=== PATIENT | male | born 1950 | race Caucasian/White ===

== ENCOUNTER 2016-08-22 14:13 | Inpatient (IN) | payer OTHER, BC ==
[~2016-08-22] VITALS: Ht 177.8 cm; Wt 86.6 kg
[~2016-08-22 14:13] MED LIST: AMLODIPINE BESYL5 MG PO; ASPIRIN81 M2 PO; FIORICET,ESG1 TABLET PO; Glucophage PO; METFORMIN; METFORMIN HCL500 MG PO; PEGASYS IM; PRAVASTATIN SOD40 MG PO; PROTONIX40 MG PO; RIBAVIRIN PO; SOTALOL AF80 MG PO; SOTALOL80 MG PO; TRAMADOL HCL50 MG PO; XARELTO20 MG PO
[2016-08-22 14:47] LABS: EOSINOPHIL (%) 2.4 % (0-5); EOSINOPHIL COUNT 0.2 K/uL (0-0.3); IMMATURE GRANULOCYTE (%) 0.3 % (0.0-0.7); INSTRUMENT ABS NEUTROPHIL CT 5.5 K/uL; LYMPHOCYTE COUNT 1.4 K/uL (1.0-2.8); MCH 31.3 PG (29.0-34.0); MCHC 33.6 G/DL (30.0-36.0); MCV 93.1 FL (86-99); MEAN PLAT.VOLUME 9.5 uM^3 (9.0-12.4); MONOCYTE (%) 6.4 % (3-12); MONOCYTE COUNT 0.5 K/uL (0-0.8); NEUTROPHIL (%) 71.8 % (45-76); NEUTROPHIL COUNT 5.5 K/uL (1.8-6.4); PLATELET COUNT 221 K/uL (156-360); RBC DIS.WIDTH-CV 12.3 % (11.8-14.6); RBC DIS.WIDTH-SD 41.8 % (39-53); RED BLOOD COUNT 4.19 M/uL (4.00-5.50); WHITE BLOOD COUNT 7.7 K/uL (4.1-10.2)
[2016-08-22 14:53] LABS: CHLORIDE 107 mEq/L (99-109); POTASSIUM 4.5 mEq/L (3.7-5.4); SODIUM 140 mEq/L (136-147)
[2016-08-22 14:55] LABS: GLUCOSE 92 mg/dL (70-99); INTER. NORMALIZED RATIO 1.1; PROTHROMBIN TIME 11.7 (9.2-11.2); PTT 27.3 (25-32)
[2016-08-22 14:56] LABS: ANION GAP 12 MEQ/L (2-14)
[2016-08-22 14:59] LABS: GFR ESTIMATE (CALCULATED) > 59 mL/min/
[2016-08-22 15:00] LABS: UREA NITROGEN (BUN) 30 mg/dL (9-23)
[2016-08-22 15:07] LABS: TROP-I INTERPRETATION NEGATIVE; TROPONIN-I < 0.01 ng/mL (0.0-0.30)
[2016-08-22] MEDS ORDERED: ASPIR 8181 M1 PO (15:09)
[2016-08-22] MEDS ORDERED: METOPROLOL TART25 MG PO (15:09)
[2016-08-22] MEDS ORDERED: VOLTAREN 1% GE100 GM TP (15:09)
[2016-08-22 19:00] LABS: POINT-OF-CARE METER ID UU13113675; POINT-OF-CARE USER ID 515036437
[2016-08-22 21:00] VITALS: BP 133/62
[2016-08-22 21:30] VITALS: BP 119/79
[2016-08-22 21:57] LABS: ANION GAP 10 MEQ/L (2-14); CHLORIDE 109 MEQ/L (99-109); MAGNESIUM 1.5 mg/dl (1.3-2.7); POTASSIUM 4.8 MEQ/L (3.7-5.4); SAMPLE HEMOLYSIS CHECK 0; SAMPLE ICTERIC CHECK 0; SAMPLE LIPEMIA CHECK 0; SODIUM 138 MEQ/L (136-147)
[2016-08-22 22:00] VITALS: BP 119/79
[2016-08-22 22:02] LABS: GFR ESTIMATE (CALCULATED) > 59 mL/min/; GLUCOSE 115 mg/dL (70-99); UREA NITROGEN (BUN) 28 mg/dL (9-23)
[2016-08-22 22:05] LABS: TROP-I INTERPRETATION NEGATIVE; TROPONIN-I < 0.01 ng/mL (0.0-0.30)
[2016-08-22 23:28] LABS: METH RESISTANT S AUREUS PCR NEGATIVE (NEGATIVE); PROBE CHECK PASS; SPECIMEN PROCESSING CONTROL PASS
[2016-08-23 05:51] LABS: ANION GAP 7 MEQ/L (2-14); CHLORIDE 107 MEQ/L (99-109); GFR ESTIMATE (CALCULATED) > 59 mL/min/; POTASSIUM 4.9 MEQ/L (3.7-5.4); SAMPLE HEMOLYSIS CHECK 0; SAMPLE ICTERIC CHECK 0; SAMPLE LIPEMIA CHECK 0; SODIUM 138 MEQ/L (136-147); UREA NITROGEN (BUN) 24 mg/dL (9-23)
[2016-08-23 05:54] LABS: HEMATOCRIT 34.6 % (38.0-50.0); MCH 31.7 PG (29.0-34.0); MCHC 32.7 G/DL (30.0-36.0); MEAN PLAT.VOLUME 9.9 uM^3 (9.0-12.4); PLATELET COUNT 218 K/uL (156-360); RBC DIS.WIDTH-CV 12.3 % (11.8-14.6); RBC DIS.WIDTH-SD 44.5 % (39-53); RED BLOOD COUNT 3.56 M/uL (4.00-5.50); WHITE BLOOD COUNT 11.7 K/uL (4.1-10.2)
[2016-08-23 05:55] LABS: MCV 97.2 FL (86-99)
[2016-08-23 05:57] LABS: GLUCOSE 181 mg/dL (70-99)
[2016-08-23 10:00] VITALS: BP 129/80
[2016-08-23 12:08] LABS: POINT-OF-CARE METER ID UU14174217
[2016-08-23 14:00] VITALS: BP 119/63
[2016-08-23 16:00] VITALS: BP 128/75
[2016-08-23 17:56] LABS: POINT-OF-CARE METER ID UU14174217
[2016-08-23 18:00] VITALS: BP 129/89
[2016-08-24] VITALS (11 sets, daily range): BP systolic 111–145; BP diastolic 63–93
[2016-08-24 05:52] LABS: POINT-OF-CARE METER ID UU13113731
[2016-08-24 06:22] LABS: EOSINOPHIL (%) 0.5 % (0-5); EOSINOPHIL COUNT 0.1 K/uL (0-0.3); HEMATOCRIT 33.7 % (38.0-50.0); IMMATURE GRANULOCYTE (%) 0.7 % (0.0-0.7); IMMATURE GRANULOCYTE COUNT 0.1 K/uL; INSTRUMENT ABS NEUTROPHIL CT 8.4 K/uL; LYMPHOCYTE COUNT 0.7 K/uL (1.0-2.8); MCH 31.6 PG (29.0-34.0); MCHC 32.9 G/DL (30.0-36.0); MEAN PLAT.VOLUME 10.3 uM^3 (9.0-12.4); MONOCYTE (%) 7.8 % (3-12); MONOCYTE COUNT 0.8 K/uL (0-0.8); NEUTROPHIL (%) 83.6 % (45-76); NEUTROPHIL COUNT 8.4 K/uL (1.8-6.4); PLATELET COUNT 186 K/uL (156-360); RBC DIS.WIDTH-CV 12.7 % (11.8-14.6); RBC DIS.WIDTH-SD 44.6 % (39-53); RED BLOOD COUNT 3.51 M/uL (4.00-5.50)
[2016-08-24 06:50] LABS: ANION GAP 7 MEQ/L (2-14); CHLORIDE 106 MEQ/L (99-109); GFR ESTIMATE (CALCULATED) > 59 mL/min/; GLUCOSE 170 mg/dL (70-99); MAGNESIUM 1.6 mg/dl (1.3-2.7); POTASSIUM 4.4 MEQ/L (3.7-5.4); SAMPLE HEMOLYSIS CHECK 0; SAMPLE ICTERIC CHECK 0; SAMPLE LIPEMIA CHECK 0; SODIUM 138 MEQ/L (136-147); UREA NITROGEN (BUN) 11 mg/dL (9-23)
[2016-08-24 18:17] LABS: POINT-OF-CARE METER ID UU13113803
[2016-08-25] VITALS (17 sets, daily range): BP systolic 114–161; BP diastolic 62–102
[2016-08-25 00:01] LABS: POINT-OF-CARE METER ID UU13113731
[2016-08-25 05:16] LABS: POINT-OF-CARE METER ID UU13113731
[2016-08-25 05:40] LABS: HEMATOCRIT 33.4 % (38.0-50.0); MCH 30.6 PG (29.0-34.0); MCHC 32.9 G/DL (30.0-36.0); MEAN PLAT.VOLUME 10.2 uM^3 (9.0-12.4); PLATELET COUNT 183 K/uL (156-360); RBC DIS.WIDTH-CV 12.1 % (11.8-14.6); RED BLOOD COUNT 3.59 M/uL (4.00-5.50); WHITE BLOOD COUNT 9.2 K/uL (4.1-10.2)
[2016-08-25 05:57] LABS: CHLORIDE 104 mEq/L (99-109); POTASSIUM 3.8 mEq/L (3.7-5.4); SODIUM 141 mEq/L (136-147)
[2016-08-25 05:59] LABS: GLUCOSE 134 mg/dL (70-99)
[2016-08-25 06:00] LABS: ANION GAP 8 MEQ/L (2-14)
[2016-08-25 06:03] LABS: GFR ESTIMATE (CALCULATED) > 59 mL/min/
[2016-08-25 06:04] LABS: UREA NITROGEN (BUN) 6 mg/dL (9-23)
[2016-08-26] VITALS (9 sets, daily range): BP systolic 105–190; BP diastolic 79–105
[2016-08-26 01:04] LABS: POINT-OF-CARE METER ID UU13113803
[2016-08-26 09:13] LABS: HEMATOCRIT 35.4 % (38.0-50.0); MCH 32.1 PG (29.0-34.0); MCHC 34.5 G/DL (30.0-36.0); MCV 93.2 FL (86-99); MEAN PLAT.VOLUME 9.9 uM^3 (9.0-12.4); PLATELET COUNT 215 K/uL (156-360); RBC DIS.WIDTH-CV 12.3 % (11.8-14.6); RBC DIS.WIDTH-SD 42.1 % (39-53); WHITE BLOOD COUNT 9.4 K/uL (4.1-10.2)
[2016-08-26 09:35] LABS: ANION GAP 9 MEQ/L (2-14); CHLORIDE 100 MEQ/L (99-109); GFR ESTIMATE (CALCULATED) > 59 mL/min/; GLUCOSE 174 mg/dL (70-99); MAGNESIUM 1.5 mg/dl (1.3-2.7); POTASSIUM 4.2 MEQ/L (3.7-5.4); SAMPLE HEMOLYSIS CHECK 0; SAMPLE ICTERIC CHECK 0; SAMPLE LIPEMIA CHECK 0; SODIUM 142 MEQ/L (136-147); UREA NITROGEN (BUN) 6 mg/dL (9-23)
[2016-08-26 12:51] LABS: POINT-OF-CARE USER ID 612031313
[2016-08-26 23:08] LABS: POINT-OF-CARE METER ID UU14188577
[2016-08-26 23:09] LABS: INTER. NORMALIZED RATIO 1.3; PROTHROMBIN TIME 12.9 (9.2-11.2); PTT 45.3 (25-32)
[2016-08-27] VITALS (7 sets, daily range): BP systolic 138–171; BP diastolic 75–93
[2016-08-27 06:01] LABS: HEMATOCRIT 35.4 % (38.0-50.0); MCH 30.9 PG (29.0-34.0); MCHC 33.9 G/DL (30.0-36.0); MCV 91.2 FL (86-99); MEAN PLAT.VOLUME 9.6 uM^3 (9.0-12.4); PLATELET COUNT 247 K/uL (156-360); RBC DIS.WIDTH-CV 12.1 % (11.8-14.6); RBC DIS.WIDTH-SD 40.6 % (39-53); RED BLOOD COUNT 3.88 M/uL (4.00-5.50); WHITE BLOOD COUNT 8.6 K/uL (4.1-10.2)
[2016-08-27 06:27] LABS: ANION GAP 7 MEQ/L (2-14); CHLORIDE 101 MEQ/L (99-109); GFR ESTIMATE (CALCULATED) > 59 mL/min/; GLUCOSE 166 mg/dL (70-99); POTASSIUM 4.1 MEQ/L (3.7-5.4); SAMPLE HEMOLYSIS CHECK 0; SAMPLE ICTERIC CHECK 0; SAMPLE LIPEMIA CHECK 0; SODIUM 142 MEQ/L (136-147); UREA NITROGEN (BUN) 6 mg/dL (9-23)
[2016-08-27 06:37] LABS: POINT-OF-CARE METER ID UU14149397
[2016-08-27 11:58] LABS: POINT-OF-CARE METER ID UU14149397
[2016-08-27 16:50] LABS: POINT-OF-CARE METER ID UU14188577
[2016-08-27 23:36] LABS: POINT-OF-CARE METER ID UU14188577
[2016-08-28 04:11] VITALS: BP 144/88
[2016-08-28 07:45] VITALS: BP 162/92
[2016-08-28 11:34] VITALS: BP 142/80
[2016-08-28 17:33] VITALS: BP 134/91
[2016-08-28 19:24] VITALS: BP 160/84
[2016-08-28 23:53] VITALS: BP 153/78
[2016-08-29 03:45] VITALS: BP 148/79
[2016-08-29 06:06] LABS: POINT-OF-CARE METER ID UU14188577
[2016-08-29 06:47] LABS: HEMATOCRIT 37.3 % (38.0-50.0); MCH 30.5 PG (29.0-34.0); MCHC 33.8 G/DL (30.0-36.0); MCV 90.3 FL (86-99); MEAN PLAT.VOLUME 9.9 uM^3 (9.0-12.4); PLATELET COUNT 263 K/uL (156-360); RBC DIS.WIDTH-CV 12.4 % (11.8-14.6); RBC DIS.WIDTH-SD 40.7 % (39-53); RED BLOOD COUNT 4.13 M/uL (4.00-5.50)
[2016-08-29 07:03] LABS: ANION GAP 9 MEQ/L (2-14); CHLORIDE 104 MEQ/L (99-109); GFR ESTIMATE (CALCULATED) > 59 mL/min/; GLUCOSE 148 mg/dL (70-99); POTASSIUM 3.7 MEQ/L (3.7-5.4); SAMPLE HEMOLYSIS CHECK 0; SAMPLE ICTERIC CHECK 0; SAMPLE LIPEMIA CHECK 0; SODIUM 144 MEQ/L (136-147); UREA NITROGEN (BUN) 7 mg/dL (9-23)
[2016-08-29 08:19] VITALS: BP 145/94
[2016-08-29 11:52] VITALS: BP 164/82
[2016-08-29 15:30] VITALS: BP 149/78
[2016-08-29 16:40] LABS: POINT-OF-CARE METER ID UU14149397
[2016-08-29] MEDS ORDERED: HYDROCODON-ACE1 EAC7 PO (17:17)
== END 2016-08-29 19:26 | disposition home or self-care (01) | DRG 329 ==
LOC: EME 14:13 → SDC 16:17 → EME 16:17 → 4WEST 20:32 → 3EAST 20:32 → 2SOUTH 20:32 → 4WEST 21:11 → 3EAST 08-26 17:19
PROVIDERS: Emergency Medicine; Hospitalist; Internal Medicine; Physician Assistant; Surgery
DX: K65.9 Peritonitis, unspecified (principal); K63.1 Perforation of intestine (nontraumatic); K66.8 Other specified disorders of peritoneum; I48.0 Paroxysmal atrial fibrillation; I97.89 Other postprocedural complications and disorders of the circulatory system, not elsewhere classified; I25.10 Atherosclerotic heart disease of native coronary artery without angina pectoris; I10 Essential (primary) hypertension; G89.18 Other acute postprocedural pain; B19.20 Unspecified viral hepatitis C without hepatic coma; E11.9 Type 2 diabetes mellitus without complications; E78.5 Hyperlipidemia, unspecified; R33.9 Retention of urine, unspecified; F17.200 Nicotine dependence, unspecified, uncomplicated; D64.9 Anemia, unspecified; E86.0 Dehydration; R04.0 Epistaxis; Z79.01 Long term (current) use of anticoagulants; Z95.0 Presence of cardiac pacemaker; I25.2 Old myocardial infarction; E66.9 Obesity, unspecified; Z68.27 Body mass index [BMI] 27.0-27.9, adult
CPT/HCPCS: 71010; 74000; 80048; 80048 91; 82948; 83735; 84484; 85025; 85027; 85610; 85730; 86900; 86901; 87641; 93005; 94799; 99281; 99285; J0330; J1160; J1170; J1815; J2405; J2543; J2710; J3010; J3475; J7030; J7050

== ENCOUNTER 2017-01-21 09:28 | Emergency (ER) | payer OTHER, BC ==
[~2017-01-21] VITALS: Ht 175.3 cm; Wt 85.7 kg
[~2017-01-21 09:28] MED LIST changes: +ASPIR 8181 M1 PO; +HYDROCODON-ACE1 EAC7 PO; +METOPROLOL TART25 MG PO; +VOLTAREN 1% GE100 GM TP
[2017-01-21 09:53] LABS: MCH 31.1 PG (29.0-34.0); MCHC 33.6 G/DL (30.0-36.0); MCV 92.8 FL (86-99); PLATELET COUNT 205 K/uL (156-360); RBC DIS.WIDTH-CV 12.3 % (11.8-14.6); RBC DIS.WIDTH-SD 42.5 % (39-53); RED BLOOD COUNT 4.85 M/uL (4.00-5.50); WHITE BLOOD COUNT 11.1 K/uL (4.1-10.2)
[2017-01-21 10:04] LABS: CHLORIDE 103 mEq/L (99-109); POTASSIUM 5.7 mEq/L (3.7-5.4); SODIUM 140 mEq/L (136-147)
[2017-01-21 10:06] LABS: GLUCOSE 198 mg/dL (70-99)
[2017-01-21 10:08] LABS: ANION GAP 8 MEQ/L (2-14)
[2017-01-21 10:10] LABS: GFR ESTIMATE (CALCULATED) > 59 mL/min/
[2017-01-21 10:11] LABS: UREA NITROGEN (BUN) 20 mg/dL (9-23)
[2017-01-21 10:13] LABS: TROP-I INTERPRETATION NEGATIVE; TROPONIN-I < 0.01 ng/mL (0.0-0.30)
[2017-01-21 11:43] LABS: INTER. NORMALIZED RATIO 1.2; PROTHROMBIN TIME 13.9 SEC (10.2-12.9)
[2017-01-21 11:49] LABS: DIGOXIN < 0.3 ng/mL (0.8-2.0)
[2017-01-21 11:59] LABS: TROP-I INTERPRETATION NEGATIVE; TROPONIN-I < 0.01 ng/mL (0.0-0.30)
[2017-01-21 12:06] LABS: D-DIMER ELISA < 150.00 ng/mLDDU (<230)
[2017-01-21] MEDS ORDERED: LIDODERM 5% P1 PATCH TD (14:57)
[2017-01-21] MEDS ORDERED: SKELAXIN800 MG PO (14:57)
[2017-01-21 15:10] VITALS: BP 111/79
== END 2017-01-21 15:17 | disposition left against medical advice (07) ==
LOC: EME 09:28
PROVIDERS: Physician Assistant
DX: R07.9 Chest pain, unspecified (principal); M54.9 Dorsalgia, unspecified; E87.5 Hyperkalemia; E11.9 Type 2 diabetes mellitus without complications; I10 Essential (primary) hypertension; I25.2 Old myocardial infarction; B19.20 Unspecified viral hepatitis C without hepatic coma; Z95.0 Presence of cardiac pacemaker; Z85.9 Personal history of malignant neoplasm, unspecified; Z79.84 Long term (current) use of oral hypoglycemic drugs; Z79.82 Long term (current) use of aspirin; Z72.0 Tobacco use
CPT/HCPCS: 71020; 80048; 80162; 84484; 85027; 85379; 85610; 93005; 99281; 99284

== ENCOUNTER 2017-09-23 18:27 | Emergency (ER) | payer OTHER, BC ==
[~2017-09-23] VITALS: Ht 177.8 cm; Wt 83.3 kg
[~2017-09-23 18:27] MED LIST changes: +LIDODERM 5% P1 PATCH TD; +SKELAXIN800 MG PO
[2017-09-23 18:29] VITALS: BP 149/87
== END 2017-09-23 19:21 | disposition home or self-care (01) ==
LOC: EME 18:27
PROC: 3E0234Z Introduction of Serum, Toxoid and Vaccine into Muscle, Percutaneous Approach (ICD-10-PCS; principal; 2017-09-23)
DX: S91.312A Laceration without foreign body, left foot, initial encounter (principal); Z23 Encounter for immunization; W45.8XXA Other foreign body or object entering through skin, initial encounter; W22.8XXA Striking against or struck by other objects, initial encounter; I10 Essential (primary) hypertension; E11.9 Type 2 diabetes mellitus without complications; Z79.84 Long term (current) use of oral hypoglycemic drugs; Z79.82 Long term (current) use of aspirin; Z79.01 Long term (current) use of anticoagulants; Z95.0 Presence of cardiac pacemaker
CPT/HCPCS: 99281; 99284